=== PATIENT | male | born 1995 | race African-American/Black ===

== ENCOUNTER 2024-11-17 16:41 | Emergency (ER) | payer OTHER ==
[~2024-11-17] VITALS: Ht 170.2 cm; Wt 83.0 kg
[2024-11-17 16:45] VITALS: PULSE 81; O2SAT 99
[2024-11-17 16:49] VITALS: BP 154/73; RESP 16; TEMP 36.9; O2SAT 99
== END 2024-11-17 18:46 | disposition home or self-care (01) ==
LOC: ER 16:41
DX: M25.572 Pain in left ankle and joints of left foot (principal); W19.XXXA Unspecified fall, initial encounter; Y93.89 Activity, other specified; Y92.89 Other specified places as the place of occurrence of the external cause; Y99.8 Other external cause status
CPT/HCPCS: 99282